=== PATIENT | male | born 1995 | race Asian ===

== ENCOUNTER 2019-04-18 13:20 | Emergency (ER) | payer OTHER ==
[2019-04-18] MEDS ORDERED: Albuterol 2.5 MG/3 ML NEB.SOL* (0.083%) INH ONE (13:41)
--- NOTE | 2019-04-18 13:52 | ED ---
Respiratory - HPI Summary HPI Summary: 24 y/o male presented to [facility] after experiencing dyspnea for 3 days. Pt feels like he cannot take in large breaths, but denies fever, chills, or severe cough. He tried clearing his airways with steam but vomited as a result. He smokes a half a pack of cigarettes per day and smoked excessively on 04/12/19 due to anxiety about a meeting. He has been in [place] since 03/02/19 and was in [facility] before that. Medications reviewed. Allergies noted. Home Medications Medication Instructions Recorded Confirmed Type NK [No Home Medications Reported] 04/18/19 04/18/19 History - History of Current Complaint Chief Complaint: EDRespiratoryDistress Stated Complaint: SOB PER EMS Time Seen by Provider: 04/18/19 13:35 Hx Obtained From: Patient Onset/Duration: Lasting Days, Still Present Timing: Constant Current Severity: None Pain Intensity: 0 Character: Dyspnea at Rest Aggravating Factor(s): Other - steam Alleviating Factor(s): Nothing Associated Signs and Symptoms: Dyspnea - Allergy/Home Medications Allergies/Adverse Reactions: Allergies Allergy/AdvReac Type Severity Reaction Status Date / Time No Known Allergies Allergy Verified 04/18/19 13:46 Home Medications: Home Medications Albuterol HFA INHALER* [Ventolin HFA Inhaler*] 1 - 2 puff INH Q4H PRN #1 mdi 03/08 [Rx] predniSONE [Prednisone 20 MG TAB] 20 mg PO QAM 4 Days #1 tablet 04/18/19 [Rx] PMH/Surg Hx/FS Hx/Imm Hx Sensory History: Denies: Hx Legally Blind, Hx Deafness Opthamlomology History: Denies: Hx Legally Blind EENT History: Denies: Hx Deafness Infectious Disease History: No Infectious Disease History: Denies: Traveled Outside the [place] in Last 30 Days - Family History Known Family History: Positive: Hypertension - father, paternal grandmother, Diabetes - mother, maternal grandmother - Social History Alcohol Use: Rare Substance Use Type: Reports: Excessive Caffeine Smoking Status (MU): Heavy Every Day Tobacco Smoker Review of Systems Negative: Fever, Chills Positive: Other - dyspnea. Negative: Cough Positive: Vomiting - after steam All Other Systems Reviewed And Are Negative: Yes Physical Exam - Summary Physical Exam Summary: Constitutional: Well-developed, Well-nourished, Alert. (-) Distressed Skin: Warm, Dry HENT: Normocephalic; Atraumatic Eyes: Conjunctiva normal Neck: Musculoskeletal ROM normal neck. (-) JVD, (-) Stridor, (-) Tracheal deviation Cardio: Rhythm regular, rate normal, Heart sounds normal; Intact distal pulses; Radial pulses are 2+ and symmetric. (-) Murmur Pulmonary/Chest wall: Effort normal. (-) Respiratory distress, (-) Wheezes, (-) Rales. Speaking in full sentences. Good air entry bilat. Abd: Soft, (-) tenderness, (-) Distension, (-) Guarding, (-) Rebound Musculoskeletal: (-) Edema, Good pulses bilaterally in radius, No calf tenderness, No venous cords, No pain with dorsiflexion of foot. Lymph: (-) Cervical adenopathy Neuro: Alert, Oriented x3 Psych: Mood and affect Normal Triage Information Reviewed: Yes Vital Signs On Initial Exam: Initial Vitals Temp Pulse Resp BP Pulse Ox 98.8 F 95 20 145/97 99 04/18/19 13:44 04/18/19 13:44 04/18/19 13:44 04/18/19 13:44 04/18/19 13:44 Vital Signs Reviewed: Yes Procedures - Sedation Patient Received Moderate/Deep Sedation with Procedure: No Diagnostics - Vital Signs Vital Signs Temp Pulse Resp BP Pulse Ox 04/18/19 13:44 98.8 F 95 20 145/97 99 - Laboratory Lab Statement: Any lab studies that have been ordered have been reviewed, and results considered in the medical decision making process. Re-Evaluation - Re-Evaluation First Eval Re-Evaluation Time: 14:50 Comment: Pt is feeling better after treatment. Disposition - Course Course Of Treatment: Patient is here with 3-5 days of shortness of breath following a viral URI. Patient smoked heavily on Friday which made his symptoms much worse. Patient's liver felt this way before. Patient has no PE risk factors and is PERC negative. Patient a chest x-ray showed no abnormality. Patient was given some albuterol with mild improvement in his symptoms. Patient is discharged with an albuterol inhaler and a course of steroids. - Diagnoses Provider Diagnoses: Cough, Shortness of breath Discharge ED - Sign-Out/Discharge Documenting (check all that apply): Patient Departure - dc - Discharge Plan Condition: Stable Disposition: HOME Prescriptions: Albuterol HFA INHALER* [Ventolin HFA Inhaler*] 1 - 2 puff INH Q4H PRN #1 mdi PRN Reason: Wheezing predniSONE [Prednisone 20 MG TAB] 20 mg PO QAM 4 Days #1 tablet Patient Education Materials: How to Stop Smoking (ED), Shortness of Breath (ED) Referrals: [facility] [Outside] Additional Instructions: PLEASE RETURN TO EMERGENCY DEPARTMENT FOR ANY NEW OR WORSENING SYMPTOMS. Please take medication as prescribed and follow up at [facility] to make sure you are getting better. Do your best to quit smoking. Please make all follow-ups in 1-3 days unless I advise you otherwise. - Billing Disposition and Condition Condition: STABLE Disposition: Home - Attestation Statements Document Initiated by Pascale: Yes Documenting Scribe: Mihir Gaines Provider For Whom Pascale is Documenting (Include Credential): Stephen Durant MD Scribe Attestation: Mihir Gilliam, scribed for Stephen Durant MD on 04/18/19 at 1546. Scribe Documentation Reviewed: Yes Provider Attestation: The documentation as recorded by the Mihir thomson accurately reflects the service I personally performed and the decisions made by , Stephen Durant MD Status of Scribe Document: Viewed
[2019-04-18 15:02] VITALS: BP 142/79
--- NOTE | 2019-04-19 08:36 | UC ---
- Progress Note Progress Note: order clarification from pharmacist - 20mg Qam (disp 4 tabs) Note: original order was dispense 1 tab Course/Dx - Diagnoses Provider Diagnoses: Cough, Shortness of breath Discharge ED - Sign-Out/Discharge Documenting (check all that apply): Post-Discharge Follow Up - Discharge Plan Condition: Stable Disposition: HOME Prescriptions: Albuterol HFA INHALER* [Ventolin HFA Inhaler*] 1 - 2 puff INH Q4H PRN #1 mdi PRN Reason: Wheezing predniSONE [Prednisone 20 MG TAB] 20 mg PO QAM 4 Days #1 tablet Patient Education Materials: How to Stop Smoking (ED), Shortness of Breath (ED) Referrals: [facility] [Outside] Additional Instructions: PLEASE RETURN TO EMERGENCY DEPARTMENT FOR ANY NEW OR WORSENING SYMPTOMS. Please take medication as prescribed and follow up at [facility] to make sure you are getting better. Do your best to quit smoking. Please make all follow-ups in 1-3 days unless I advise you otherwise. - Billing Disposition and Condition Condition: STABLE Disposition: Home
== END 2019-04-18 15:01 | disposition home or self-care (01) ==
LOC: ED 13:20
DX: R05 Cough (principal); R06.02 Shortness of breath; F17.200 Nicotine dependence, unspecified, uncomplicated
CPT/HCPCS: 71046; 99282; J7512